=== PATIENT | male | born 1955 | race Caucasian/White ===

== ENCOUNTER 2016-12-11 05:46 | Inpatient (IN) | payer OTHER ==
[~2016-12-11] VITALS: Ht 170.2 cm; Wt 106.6 kg
--- NOTE | 2016-12-11 05:50 | NUR ---
TO ER BED 5
[2016-12-11 06:01] VITALS: BP 167/98
--- NOTE | 2016-12-11 06:04 | NUR ---
61Y M BIB SELF C/O BILAT PECTORIS PAIN. PT STATES ITS NOT SO MUCH CHEST PAIN BUT FEELS IF IT IS MORE MUSCLE PAIN. PAIN DOES NOT RADIATE ANYWHERE, AND HAS BEEN IN PAIN FOR 3 DAYS. PT DENIES ANY TRAUMA TO THE AREA, DENIES ANY N/V/D.
[2016-12-11] MEDS ORDERED: ASPIRIN 81 MG TAB.CHEW PO ONE (06:05)
[2016-12-11] MEDS ORDERED: NACL 0.9% 1,000 ML IV ONE (06:05)
--- NOTE | 2016-12-11 06:13 | NUR ---
Patient being evaluated by physician at bedside.
[2016-12-11 06:29] LABS: BASOPHILS # (AUTO) 0.1 K/uL (0.00-0.22); BASOPHILS % (AUTO) 0.8 % (0.0-2.0); EOSINOPHILS # (AUTO) 0.2 K/uL (0-0.4); EOSINOPHILS % (AUTO) 2.4 % (0.0-4.0); HEMATOCRIT 41.1 % (36-52); HEMOGLOBIN 14.2 g/dL (12.0-18.0); LYMPHOCYTES % (AUTO) 26.5 % (20.5-51.1); MEAN CORPUSCULAR HEMOGLOBIN 31 pg (27-31); MEAN CORPUSCULAR HGB CONC 35 g/dL (33-37); MEAN CORPUSCULAR VOLUME 89 fL (80-94); MONOCYTES # (AUTO) 0.6 K/uL (0.8-1.0); MONOCYTES % (AUTO) 7.4 % (1.7-9.3); NEUTROPHILS # (AUTO) 4.6 K/uL (1.8-7.7); NEUTROPHILS % (AUTO) 62.9 % (42.2-75.2); PLATELET COUNT (AUTO) 176 K/uL (140-450); RED BLOOD CELL COUNT(AUTO) 4.62 MIL/uL (4.20-6.10); RED CELL DISTRIBUTION WIDTH 12.1 % (11.6-13.7); WHITE BLOOD COUNT (AUTO) 7.5 K/uL (4.8-10.8)
[2016-12-11] MEDS ORDERED: NITROGLYCERIN 0.4 MG TAB SL ONE (06:40)
[2016-12-11] MEDS ORDERED: METOPROLOL 25 MG TAB PO ONE (06:40)
[2016-12-11] MEDS ORDERED: ONDANSETRON 4 MG TAB PO ONE (06:40)
[2016-12-11] MEDS ORDERED: MORPHINE SULFATE 2 MG/ML SYR IVP ONE (06:40)
[2016-12-11 06:45] LABS: ANION GAP 10.6 (8-16); CALCIUM 8.4 mg/dL (8.5-10.1); CARBON DIOXIDE 28.4 mmol/L (21-32); CREATININE 0.7 mg/dL (0.6-1.3)
[2016-12-11 07:00] LABS: ALBUMIN 3.5 g/dL (3.4-5.0); TOTAL BILIRUBIN 0.5 mg/dL (0.0-1.0); TOTAL PROTEIN, SERUM 6.9 g/dL (6.4-8.2)
[2016-12-11 07:06] LABS: INR 1.1 (0.8-1.2); PARTIAL THROMBOPLASTIN TIME 26.8 secs (22-35.6); PROTHROMBIN TIME 10.5 secs (10.8-13.4)
--- NOTE | 2016-12-11 07:06 | NUR ---
RECEIVED REPORT FROM DIAMOND HARMAN. Patient appears to be resting comfortably in bed. Vital Signs within normal limits. Respirations even and unlabored.WILL CONTINUE TO MONITOR.
--- NOTE | 2016-12-11 07:06 | NUR ---
Pt report given to ELIZABETH FIELDS . Transfer of care at this time.
[2016-12-11] MEDS ORDERED: NITROGLYCERIN 2% 1 GM PKT TP ONE (07:25)
[2016-12-11] MEDS ORDERED: ACETAMINOPHEN 325 MG TAB PO PRN (07:35)
[2016-12-11] MEDS ORDERED: MORPHINE SULFATE 2 MG/ML SYR IVP PRN (07:35)
[2016-12-11] MEDS ORDERED: ONDANSETRON 4 MG/2 ML VIAL IVP PRN (07:35)
--- NOTE | 2016-12-11 08:09 | NUR ---
Patient back from CT via [facility].
--- NOTE | 2016-12-11 08:10 | NUR ---
GAVE REPORT TO DIAMOND LARA
[2016-12-11] MEDS ORDERED: METF500T PO (08:35)
[2016-12-11] MEDS ORDERED: CAPT25TA10 PO (08:35)
[2016-12-11] MEDS ORDERED: GLIP5TAB4 PO (08:35)
--- NOTE | 2016-12-11 08:37 | NUR ---
Patient will be admitted to care of DR DEAN . Admited to TELE. Will go to [id number]. Belongings list completed. Report to DIAMOND LARA.
--- NOTE | 2016-12-11 09:30 | NUR ---
RECEIVED REPORT FROM ER ,NEW ADMIT UNDER THE CARE OF DR DEAN WITH A DX OF UNSTABLE ANGINA. PATIENT A/OX4 CITIZEN OF [place] AND [place] SPEAKING WITH LITTLE CITIZEN OF [place] AND [place]. ABLE TO MAKE NEEDS KNOWN. NO S/S OF RESP DISTRESS NOTED NO COMPLAIN OF PAIN. DENIES ANY CHEST PAIN AT THIS TIME. IV SITE RT AC GAUGE 22 AND LEFT AC GAUGE 20 , INTACT AND PATENT. UNIT ORIENTATION GIVEN SAFETY HAS BEEN TAUGHT. PLAN OF CARE DISCUSSED WITH THE PATIENT VITALS STABLE WILL CONTINUE TO MONITOR.
[2016-12-11 09:42] VITALS: BP 92/53
[2016-12-11] MEDS: ENOXAPARIN 40 MG/0.4 ML SYR SUBQ SCH (10:50)
--- NOTE | 2016-12-11 10:50 | NUR ---
LOVENOX SUBQ GIVEN FOR VTE PROPHYLAXES.
[2016-12-11] MEDS: BLOOD GLUCOSE MONITORING 1 DEV DEV FS SCH ×3 (11:23→20:57)
[2016-12-11 12:00] VITALS: BP 106/67
--- NOTE | 2016-12-11 12:00 | NUR ---
LUNCH SERVED GOOD APPETITE , VITALS STABLE AT THIS TIME.
[2016-12-11 14:13] LABS: CREATINE KINASE MB 5.9 ng/mL (0-3.6)
--- NOTE | 2016-12-11 14:58 | NUR ---
DR DEAN VISITED PATIENT NEW ORDER CARRIED OUT
[2016-12-11 16:00] VITALS: BP 118/72
--- NOTE | 2016-12-11 18:17 | NUR ---
LEFT A MESSAGE FOR DR ELLIS Peters FOR CARDIOLOGY CONSULT.
--- NOTE | 2016-12-11 18:22 | NUR ---
RESTING WELL , NO CP DURING THE SHIFT , VITALS STABLE ,SAFETY MAINTAINED CALL LIGHT IN REACH.
--- NOTE | 2016-12-11 19:30 | NUR ---
RECEIVED REPORT FROM ROSENDO FIELDS AT BEDSIDE. PT IS ALERT AWAKE ORIENTED X4. ICEL[place]IC-SPEAKING ONLY. INITIAL ASSESSMENT DONE. NO S/S OF RESPIRATORY DISTRESS OR SOB NOTED. NO C/O PAIN OR ANY DISCOMFORT AT THIS TIME. PLAN OF CARE REVIEWED TO PT AND FAMILY AT BEDSIDE AND VERBALIZED UNDERSTANDING. CALL LIGHT WITHIN REACH. WILL CONTINUE TO MONITOR
[2016-12-11 20:00] VITALS: BP 115/70
[2016-12-11] MEDS: INSULIN LISPRO SLIDING SCALE 100 UNITS/ML VIAL SUBQ PRN (21:00)
--- NOTE | 2016-12-11 21:50 | NUR ---
VIPUL [place] CAME TO SEE PT AND NEW ORDERS WERE GIVEN (PLS. SEE CPOE) NEW ORDERS NOTED AND CARRIED OUT. WILL CONTINUE TO MONITOR.
[2016-12-12] VITALS: BP 119/74
--- NOTE | 2016-12-12 00:10 | NUR ---
PT. IS SLEEPING RIGHT NOW BUT EASILY AROUSABLE. NO S/S OF ANY DISCOMFORT AT THIS TIME. ALL NEEDS ARE ATTENDED. CALL LIGHT WITHIN REACH. WILL CONTINUE TO MONITOR.
[2016-12-12 04:00] VITALS: BP 122/76
--- NOTE | 2016-12-12 05:00 | NUR ---
AM CARE RENDERED. BED LINEN CHANGED. INSTRUCTED PT TO REPOSITION. KEPT CLEAN AND DRY. CALL LIGHT WITHIN REACH. WILL CONTINUE TO MONITOR.
[2016-12-12] MEDS: BLOOD GLUCOSE MONITORING 1 DEV DEV FS SCH ×2 (06:53→11:39)
--- NOTE | 2016-12-12 07:30 | NUR ---
PT HAS NO S/S OF ANY DISCOMFORT. PLAN OF CARE ENDORSED TO AM SHIFT NURSE FOR CONTINUITY OF CARE.
--- NOTE | 2016-12-12 07:30 | NUR ---
RECEIVED REPORT FROM NIGHT NURSE, PT IS AAOX4 [place] SPEAKING, ON ROOM AIR, IV TO LEFT FA 22G SALINE LOCK PATENT AND INTACT, RIGHT FA 20G SALINE LOCK PATENT AND INTACT, SKIN INTACT. PT STATES NO CHEST PAIN AT THIS TIME. INITIAL ASSESSMENT COMPLETED, REVIEWED PLAN OF CARE WITH PT, PT VERBALIZED UNDERSTANDING. ALL SAFETY PRECAUTIONS MET. CALL LIGHT WITHIN REACH. WILL CONTINUE TO MONITOR.
[2016-12-12 07:53] LABS: BASOPHILS # (AUTO) 0.1 K/uL (0.00-0.22); BASOPHILS % (AUTO) 0.9 % (0.0-2.0); EOSINOPHILS # (AUTO) 0.2 K/uL (0-0.4); EOSINOPHILS % (AUTO) 2.5 % (0.0-4.0); HEMATOCRIT 41.6 % (36-52); LYMPHOCYTES # (AUTO) 2.2 K/uL (2.0-11.5); LYMPHOCYTES % (AUTO) 27.3 % (20.5-51.1); MEAN CORPUSCULAR HEMOGLOBIN 30 pg (27-31); MEAN CORPUSCULAR HGB CONC 34 g/dL (33-37); MEAN CORPUSCULAR VOLUME 89 fL (80-94); MONOCYTES # (AUTO) 0.6 K/uL (0.8-1.0); MONOCYTES % (AUTO) 7.3 % (1.7-9.3); NEUTROPHILS # (AUTO) 4.8 K/uL (1.8-7.7); PLATELET COUNT (AUTO) 166 K/uL (140-450); RED BLOOD CELL COUNT(AUTO) 4.66 MIL/uL (4.20-6.10); RED CELL DISTRIBUTION WIDTH 12.1 % (11.6-13.7); WHITE BLOOD COUNT (AUTO) 7.9 K/uL (4.8-10.8)
[2016-12-12 08:00] VITALS: BP 134/83
[2016-12-12 08:16] LABS: ALBUMIN 3.2 g/dL (3.4-5.0); ANION GAP 9.1 (8-16); CALCIUM 8.5 mg/dL (8.5-10.1); CARBON DIOXIDE 29.9 mmol/L (21-32); CREATININE 0.8 mg/dL (0.6-1.3); TOTAL BILIRUBIN 0.6 mg/dL (0.0-1.0); TOTAL PROTEIN, SERUM 6.6 g/dL (6.4-8.2)
[2016-12-12 08:27] LABS: CREATINE KINASE MB 3.5 ng/mL (0-3.6)
[2016-12-12] MEDS ORDERED: ASPIRIN 81 MG TAB.CHEW PO SCH (09:00)
--- NOTE | 2016-12-12 09:01 | NUR ---
PATIENT HAS BEEN SCREENED AND CATEGORIZED MODERATE NUTRITION RISK. PATIENT WILL BE SEEN WITHIN 3-5 DAYS OF ADMISSION. 12/13/16-12/15/[address]
[2016-12-12] MEDS: ENOXAPARIN 40 MG/0.4 ML SYR SUBQ SCH (09:29)
--- NOTE | 2016-12-12 09:32 | NUR ---
DUE MEDICATION GIVEN, PT CURRENTLY RESTING IN BED. ALL NEEDS MET. CALL LIGHT WITHIN REACH. WILL CONTINUE TO MONITOR.
--- NOTE | 2016-12-12 09:45 | NUR ---
STRESS TEST DONE.
--- NOTE | 2016-12-12 11:30 | NUR ---
PT CURRENTLY RESTING IN BED, ALL NEEDS MET. CALL LIGHT WITHIN REACH. WILL CONTINUE TO MONITOR.
--- NOTE | 2016-12-12 11:53 | NUR ---
CM NOTE INITIAL REVIEW SENT TO [facility] FAX# [phone] PH# [place] [phone] JANUARY [phone]
[2016-12-12 12:00] VITALS: BP 131/82
[2016-12-12] MEDS: INSULIN LISPRO SLIDING SCALE 100 UNITS/ML VIAL SUBQ PRN (12:50)
--- NOTE | 2016-12-12 13:05 | NUR ---
PT CURRENTLY RESTING IN BED ALL NEEDS MET. CALL LIGHT WITHIN REACH
--- NOTE | 2016-12-12 15:15 | NUR ---
PT SIGNED ALL DISCHARGE PAPERWORK, IV REMOVED TIP INTACT, PRESCRIPTION GIVEN, DISCHARGE EDUCATION GIVEN PT VERBALIZED UNDERSTANDING.
--- NOTE | 2016-12-12 15:32 | NUR ---
PT WAS WALKED OUT TO FRONT LOBBY IN STABLE CONDITION.
== END 2016-12-12 15:32 | disposition home or self-care (01) | DRG 203 ==
LOC: MED 05:46 → MTU 07:34
PROVIDERS: ADMIT Hospitalist; ATTEND Hospitalist
DX: R07.89 Other chest pain (principal); I10 Essential (primary) hypertension; E11.9 Type 2 diabetes mellitus without complications; Z79.84 Long term (current) use of oral hypoglycemic drugs; Z79.899 Other long term (current) drug therapy
CPT/HCPCS: 36415; 71010; 71275; 80053; 82550; 82553; 82948; 84484; 85025; 85379; 85610; 85730; 87081; 93005; 93017; 96361; 96374; 99291; J1650; J1815; J2270; J7030; Q0092; Q0162; Q9967